=== PATIENT | female | born 1980 | race Caucasian/White ===

== ENCOUNTER → 2024-02-28 08:21 | Outpatient (REF) | payer OTHER, SELFPAY | LOC: RAD 08:21 | PROVIDERS: ATTENDING PHYSICIAN Student in an Organized Health Care Education/Training Program; FAMILY PHYSICIAN Nurse Practitioner Adult Health | DX: M79.643 Pain in unspecified hand (principal); M77.10 Lateral epicondylitis, unspecified elbow; M79.673 Pain in unspecified foot; M25.569 Pain in unspecified knee | CPT/HCPCS: 76882 ==

== ENCOUNTER → 2024-04-10 10:36 | Outpatient (REF) | payer OTHER, SELFPAY | LOC: RAD 10:36 | PROVIDERS: ATTENDING PHYSICIAN Student in an Organized Health Care Education/Training Program; FAMILY PHYSICIAN Nurse Practitioner Adult Health | DX: M77.10 Lateral epicondylitis, unspecified elbow (principal); M79.643 Pain in unspecified hand | CPT/HCPCS: 76882 ==